=== PATIENT | female | born 1940 | race Caucasian/White ===

== ENCOUNTER 2022-09-07 14:03 | Inpatient (IN) | payer MEDICARE ==
[~2022-09-07] VITALS: Ht 172.7 cm; Wt 96.8 kg
[2022-09-07 15:38] LABS: Albumin 3.5 g/dL (3.4-5.0); BUN/Creatinine Ratio 24.4; Calcium 8.8 mg/dL (8.5-10.1); Potassium 4.1 mmol/L (3.5-5.1)
[2022-09-07 15:41] LABS: Bilirubin, Total 0.8 mg/dL (0.2-1.0); Total Protein 6.7 g/dL (6.4-8.2)
[2022-09-07 16:07] LABS: INR 1.07 (0.9-1.15); Partial Thromboplastin Time 27.9 sec (24.6-33.4)
[2022-09-07 16:16] LABS: Red Cell Distribution Width 16.2 % (11.8-14.3)
[2022-09-07 16:18] LABS: Hematocrit 20.7 % (36.0-46.0); Mean Corpuscular Hemoglobin 31.8 pg (28.0-32.0); Mean Corpuscular Hgb Conc. 33.5 g/dL (32.0-36.0); Mean Corpuscular Volume 94.9 fL (80.0-100.0); Red Blood Cells 2.18 10^6/uL (4.0-5.20); White Blood Cell 23.2 10^3/uL (4.4-10.8)
[2022-09-07 16:36] LABS: Hemoglobin 6.9 g/dL (12.2-16.2)
[2022-09-07 16:37] LABS: Basophils % (manual) 0 (0.0-2.0); Promyelocytes % 0; Reactive Lymphocytes 0
[2022-09-07 16:48] LABS: Band Neutrophils % (manual) 11; Blast Cells 35; Eosinophils % (manual) 1 (0-7); Lymphocytes % (manual) 29 (10.0-50.0); Metamyelocytes % 2; Monocytes % (manual) 15 (0-12); Myelocytes % 3
[2022-09-07] MEDS ORDERED: NITROGLYCERIN 0.4 MG SL TAB SL PRN (20:15)
[2022-09-07] MEDS ORDERED: ACETAMINOPHEN 325 MG TAB PO PRN (20:15)
[2022-09-07] MEDS ORDERED: MORPHINE SULFATE INJ 2 MG/ml SYRG IV PRN (20:15)
[2022-09-07] MEDS ORDERED: HYDROcodone-ACET 5/325MG TAB PO PRN (20:15)
[2022-09-07] MEDS ORDERED: ONDANSETRON HCL 4 MG/2 ML VIAL IV PRN (20:15)
[2022-09-07] MEDS ORDERED: DOCUSATE SOD 100 MG CAP PO PRN (20:15)
[2022-09-07] MEDS ORDERED: SIMV-13 PO (20:29)
[2022-09-07] MEDS ORDERED: LEVO200T7 PO (20:29)
[2022-09-07] MEDS ORDERED: ATEN25TA PO (20:29)
[2022-09-07 22:15] VITALS: BP 141/60
[2022-09-07 22:30] VITALS: BP 137/67
[2022-09-07] MEDS: SODIUM CHLOR 0.9% PF (SALINE LOCK) 10ML VIAL/SYR IV SCH (22:33)
[2022-09-07] MEDS: ATENOLOL 25 MG TAB PO SCH (23:01)
[2022-09-07] MEDS: ATORVASTATIN 20 MG TAB PO SCH (23:01)
[2022-09-07 23:18] VITALS: BP 129/65
[2022-09-07 23:55] VITALS: BP 138/63
[2022-09-08] VITALS (7 sets, daily range): BP systolic 115–133; BP diastolic 55–69
[2022-09-08] MEDS: SODIUM CHLOR 0.9% PF (SALINE LOCK) 10ML VIAL/SYR IV SCH ×3 (06:01→22:20)
[2022-09-08 06:47] LABS: Potassium 4.1 mmol/L (3.5-5.1)
[2022-09-08 06:54] LABS: Hemoglobin 8.2 g/dL (12.2-16.2)
[2022-09-08 06:56] LABS: Hematocrit 23.4 % (36.0-46.0); Mean Corpuscular Hemoglobin 33.4 pg (28.0-32.0); Mean Corpuscular Hgb Conc. 35.2 g/dL (32.0-36.0); Mean Corpuscular Volume 94.7 fL (80.0-100.0); Red Blood Cells 2.47 10^6/uL (4.0-5.20); Red Cell Distribution Width 15.6 % (11.8-14.3); White Blood Cell 20.1 10^3/uL (4.4-10.8)
[2022-09-08 06:57] LABS: Albumin 3.6 g/dL (3.4-5.0); BUN/Creatinine Ratio 24.7; Bilirubin, Total 1.5 mg/dL (0.2-1.0); Calcium 8.5 mg/dL (8.5-10.1); Total Protein 6.9 g/dL (6.4-8.2)
[2022-09-08] MEDS: LEVOTHYROXINE SODIUM 100 MCG TAB PO SCH (07:22)
[2022-09-08 07:49] LABS: Basophils % (manual) 0 (0.0-2.0); Blast Cells 0; Myelocytes % 0; Reactive Lymphocytes 0
[2022-09-08 08:05] LABS: Band Neutrophils % (manual) 2; Eosinophils % (manual) 1 (0-7); Lymphocytes % (manual) 85 (10.0-50.0); Metamyelocytes % 5; Monocytes % (manual) 2 (0-12); Promyelocytes % 1
[2022-09-08] MEDS ORDERED: OMNIPAQUE ORAL SOLN 500ml 12mg/ml PO ONE (08:39)
[2022-09-08 09:08] LABS: Urine Bacteria FEW /hpf (None Seen); Urine Blood Negative /uL (Negative); Urine Specific Gravity 1.012 (1.001-1.035); Urine WBC 1 /hpf (0 - 5)
[2022-09-08] MEDS: FAMOTIDINE 20 MG TAB PO SCH (09:53)
[2022-09-08] MEDS: ATENOLOL 25 MG TAB PO SCH ×2 (09:56→22:22)
[2022-09-08] MEDS ORDERED: PANTOPRAZOLE 40 MG/10 ML VIAL INJ IV SCH (10:00)
[2022-09-08] MEDS ORDERED: IOHEXOL 300 MG/ML 100ML BOTTLE IJ ONE (10:39)
[2022-09-08] MEDS: methylPREDNISolone SOD SUCC 125 MG/2 ML VL IV SCH ×2 (14:13→22:20)
[2022-09-08] MEDS: FUROSEMIDE 20 MG/2 ML VIAL IV SCH (18:24)
[2022-09-08] MEDS: ATORVASTATIN 20 MG TAB PO SCH (22:20)
[2022-09-09 05:00] VITALS: BP 124/67
[2022-09-09 05:26] LABS: Hemoglobin 7.2 g/dL (12.2-16.2); White Blood Cell 12.4 10^3/uL (4.4-10.8)
[2022-09-09 05:29] LABS: Hematocrit 21.7 % (36.0-46.0); Mean Corpuscular Hemoglobin 31.8 pg (28.0-32.0); Mean Corpuscular Hgb Conc. 33.4 g/dL (32.0-36.0); Mean Corpuscular Volume 95.1 fL (80.0-100.0); Red Blood Cells 2.28 10^6/uL (4.0-5.20)
[2022-09-09 05:37] LABS: Basophils % (manual) 0 (0.0-2.0); Blast Cells 0; Eosinophils % (manual) 0 (0-7); Promyelocytes % 0; Reactive Lymphocytes 0
[2022-09-09] MEDS: FUROSEMIDE 20 MG/2 ML VIAL IV SCH ×2 (05:51→18:32)
[2022-09-09] MEDS: methylPREDNISolone SOD SUCC 125 MG/2 ML VL IV SCH ×3 (05:51→21:40)
[2022-09-09] MEDS: SODIUM CHLOR 0.9% PF (SALINE LOCK) 10ML VIAL/SYR IV SCH ×3 (05:51→21:40)
[2022-09-09] MEDS: LEVOTHYROXINE SODIUM 100 MCG TAB PO SCH (05:52)
[2022-09-09 05:56] LABS: Potassium 4.2 mmol/L (3.5-5.1)
[2022-09-09 06:04] LABS: Albumin 3.4 g/dL (3.4-5.0); BUN/Creatinine Ratio 30.2; Calcium 8.4 mg/dL (8.5-10.1); Total Protein 6.7 g/dL (6.4-8.2)
[2022-09-09 08:00] VITALS: BP 149/69
[2022-09-09 08:49] VITALS: BP 149/69
[2022-09-09 09:08] LABS: Band Neutrophils % (manual) 23; Lymphocytes % (manual) 54 (10.0-50.0); Metamyelocytes % 3; Monocytes % (manual) 4 (0-12); Myelocytes % 2
[2022-09-09] MEDS: FAMOTIDINE 20 MG TAB PO SCH (09:31)
[2022-09-09] MEDS: ATENOLOL 25 MG TAB PO SCH ×2 (09:35→21:42)
[2022-09-09] MEDS ORDERED: POLYETHYLENE GLYCOL 17 GM PWDR PO ONE (10:00)
[2022-09-09 13:15] VITALS: BP 120/56
[2022-09-09 16:54] VITALS: BP 123/59
[2022-09-09] MEDS: ATORVASTATIN 20 MG TAB PO SCH (21:40)
[2022-09-09 21:54] VITALS: BP 113/60
[2022-09-10] VITALS (13 sets, daily range): BP systolic 108–133; BP diastolic 36–66
[2022-09-10 06:17] LABS: Hematocrit 19.7 % (36.0-46.0); Mean Corpuscular Hemoglobin 32.6 pg (28.0-32.0); Mean Corpuscular Hgb Conc. 34.1 g/dL (32.0-36.0); Mean Corpuscular Volume 95.4 fL (80.0-100.0); Red Blood Cells 2.06 10^6/uL (4.0-5.20); Red Cell Distribution Width 15.7 % (11.8-14.3); White Blood Cell 9.3 10^3/uL (4.4-10.8)
[2022-09-10] MEDS: FUROSEMIDE 20 MG/2 ML VIAL IV SCH ×2 (06:17→18:40)
[2022-09-10] MEDS: SODIUM CHLOR 0.9% PF (SALINE LOCK) 10ML VIAL/SYR IV SCH ×3 (06:18→22:00)
[2022-09-10] MEDS: LEVOTHYROXINE SODIUM 100 MCG TAB PO SCH (06:19)
[2022-09-10 06:33] LABS: Potassium 4.5 mmol/L (3.5-5.1)
[2022-09-10 06:40] LABS: BUN/Creatinine Ratio 37.8; Calcium 8.9 mg/dL (8.5-10.1)
[2022-09-10 06:53] LABS: Hemoglobin 6.7 g/dL (12.2-16.2)
[2022-09-10 06:54] LABS: Basophils % (manual) 0 (0.0-2.0); Eosinophils % (manual) 0 (0-7)
[2022-09-10 06:55] LABS: Blast Cells 0; Myelocytes % 0; Promyelocytes % 0; Reactive Lymphocytes 0
[2022-09-10] MEDS: FAMOTIDINE 20 MG TAB PO SCH (08:58)
[2022-09-10] MEDS: ATENOLOL 25 MG TAB PO SCH ×2 (08:59→23:26)
[2022-09-10 11:21] LABS: Band Neutrophils % (manual) 31; Lymphocytes % (manual) 35 (10.0-50.0); Metamyelocytes % 1; Monocytes % (manual) 19 (0-12)
[2022-09-10] MEDS: methylPREDNISolone SOD SUCC 40 MG/ML VL IV SCH ×2 (15:18→23:08)
[2022-09-10] MEDS: ATORVASTATIN 20 MG TAB PO SCH (23:08)
[2022-09-11] VITALS (11 sets, daily range): BP systolic 112–148; BP diastolic 43–58
[2022-09-11] MEDS: FUROSEMIDE 20 MG/2 ML VIAL IV SCH (06:21)
[2022-09-11] MEDS: SODIUM CHLOR 0.9% PF (SALINE LOCK) 10ML VIAL/SYR IV SCH ×2 (06:22→14:19)
[2022-09-11] MEDS: methylPREDNISolone SOD SUCC 40 MG/ML VL IV SCH ×2 (06:22→14:19)
[2022-09-11] MEDS: LEVOTHYROXINE SODIUM 100 MCG TAB PO SCH (06:22)
[2022-09-11 06:45] LABS: Hemoglobin 7.3 g/dL (12.2-16.2); White Blood Cell 6.8 10^3/uL (4.4-10.8)
[2022-09-11 06:49] LABS: Hematocrit 21.5 % (36.0-46.0); Mean Corpuscular Hgb Conc. 33.9 g/dL (32.0-36.0); Mean Corpuscular Volume 94.6 fL (80.0-100.0); Red Blood Cells 2.27 10^6/uL (4.0-5.20); Red Cell Distribution Width 15.1 % (11.8-14.3)
[2022-09-11 07:06] LABS: Basophils % (manual) 0 (0.0-2.0); Blast Cells 0; Eosinophils % (manual) 0 (0-7); Promyelocytes % 0; Reactive Lymphocytes 0
[2022-09-11 07:57] LABS: Band Neutrophils % (manual) 7; Lymphocytes % (manual) 45 (10.0-50.0); Metamyelocytes % 2; Monocytes % (manual) 8 (0-12); Myelocytes % 7
[2022-09-11] MEDS: ATENOLOL 25 MG TAB PO SCH (08:46)
[2022-09-11] MEDS: FAMOTIDINE 20 MG TAB PO SCH (08:46)
== END 2022-09-11 16:21 | disposition home or self-care (01) | DRG 834 ==
LOC: ER 14:03 → TELE 20:22 → TELE-CENTR 09-08 20:48
PROVIDERS: ADMIT Nurse Practitioner Family; ATTEND Internal Medicine
PROC: 30233R1 Transfusion of Nonautologous Platelets into Peripheral Vein, Percutaneous Approach (ICD-10-PCS; principal; 2022-09-07)
PROC: 30233N1 Transfusion of Nonautologous Red Blood Cells into Peripheral Vein, Percutaneous Approach (ICD-10-PCS; 2022-09-07)
DX: C95.00 Acute leukemia of unspecified cell type not having achieved remission (principal); I50.31 Acute diastolic (congestive) heart failure; D61.818 Other pancytopenia; C91.10 Chronic lymphocytic leukemia of B-cell type not having achieved remission; E03.9 Hypothyroidism, unspecified; E78.5 Hyperlipidemia, unspecified; I11.0 Hypertensive heart disease with heart failure; I25.10 Atherosclerotic heart disease of native coronary artery without angina pectoris; Z83.3 Family history of diabetes mellitus; Z95.5 Presence of coronary angioplasty implant and graft; I25.2 Old myocardial infarction
CPT/HCPCS: 36415; 71045; 71260; 74177; 80048; 80053; 81001; 82270; 83036; 83615; 83880; 84439; 84443; 85007; 85027; 85045; 85610; 85730; 86850; 86880; 86900; 86901; 86920; 87426; 93306; G0378